=== PATIENT | female | born 1995 ===

== ENCOUNTER 2022-01-25 09:12 | Inpatient (IN) | payer BC ==
[2022-01-25] MEDS ORDERED: Lidocaine 1% 50 ML MDV INJECT PRN (09:39)
[2022-01-25] MEDS ORDERED: Ondansetron 4 MG/2 ML SDV IVPUSH PRN (09:39)
[2022-01-25] MEDS ORDERED: Misoprostol 200 MCG Tab PO PRN (09:39)
[2022-01-25] MEDS ORDERED: Tranexamic Acid 1,000 MG in Sodium Chloride 0.9% 100 ML IV PRN (09:39)
[2022-01-25] MEDS ORDERED: Butorphanol 1 MG/ML SDV IVPUSH PRN (09:39)
[2022-01-25] MEDS ORDERED: Water For Irrigation,Sterile 1,000 ML Container IRR PRN (09:39)
[2022-01-25] MEDS ORDERED: Sodium Chloride 0.9% 10 ML Syringe FLUSH PRN (09:39)
[2022-01-25] MEDS ORDERED: Carboprost Tromethamine 250 MCG/1 ML Amp IM PRN (09:39)
[2022-01-25] MEDS ORDERED: Methylergonovine 0.2 MG/1 ML Amp IM PRN (09:39)
[2022-01-25] MEDS ORDERED: Sodium Chloride 0.9% 2.5 ML Syringe FLUSH PRN (09:39)
[2022-01-25] MEDS ORDERED: Sodium Chloride 0.9% 20 ML SDV IV PRN (09:39)
[2022-01-25] MEDS ORDERED: Oxytocin/0.9 % Sodium Chloride 30 UNIT/500 ML BAG IV SCH (09:45)
[2022-01-25] MEDS ORDERED: fentaNYL 100 MCG/2 ML SDV ONE (10:26)
[2022-01-25] MEDS ORDERED: Ropivacaine 100 ML ONE (10:26)
[2022-01-25] MEDS ORDERED: ePHEDrine 50 MG/ML SDV IVPUSH PRN ×2 (10:41)
[2022-01-25] MEDS ORDERED: Ropivacaine 200 MG in Premix Bag 1 BAG EPIDUR SCH (10:45)
[2022-01-25] MEDS: Lactated Ringers 1,000 ML IV SCH ×3 (10:51→11:58)
[2022-01-25] MEDS ORDERED: Acetaminophen 500 MG Tab PO PRN (14:35)
[2022-01-25] MEDS ORDERED: Witch Hazel Medicated Pads 40/Jar TOP PRN (14:35)
[2022-01-25] MEDS ORDERED: Lanolin 100% Cream 7 GM Tube TOP PRN (14:35)
[2022-01-25] MEDS ORDERED: Benzocaine/Menthol 20%-0.5% Spray 78 GM Cannister TOP PRN (14:35)
[2022-01-25] MEDS ORDERED: Ibuprofen 400 MG Tab PO PRN (14:35)
[2022-01-25] MEDS ORDERED: Ibuprofen 800 MG Tab PO PRN (14:35)
[2022-01-25] MEDS ORDERED: Docusate Sodium 100 MG Cap PO PRN (14:35)
[2022-01-25] MEDS ORDERED: oxyCODONE 5 MG Tab PO PRN (14:35)
[2022-01-25] MEDS ORDERED: Bisacodyl 10 MG Supp RECTAL PRN (14:35)
[2022-01-25] MEDS: Acetaminophen 500 MG Tab PO PRN (19:38)
[2022-01-26] MEDS: Acetaminophen 500 MG Tab PO PRN ×2 (06:03→13:00)
== END 2022-01-26 17:25 | disposition home or self-care (01) | DRG 560 ==
LOC: MW.OBCHECK 09:12 → MW.OB 09:17 → MW.OBCHECK 09:38 → MW.OB 09:39 → OBSVTOIN 14:35 → MW.OB 19:59
PROVIDERS: ADMIT Obstetrics & Gynecology; ATTEND Obstetrics & Gynecology
PROC: 10E0XZZ Delivery of Products of Conception, External Approach (ICD-10-PCS; principal; 2022-01-25)
PROC: 10907ZC Drainage of Amniotic Fluid, Therapeutic from Products of Conception, Via Natural or Artificial Opening (ICD-10-PCS; 2022-01-25)
PROC: 0KQM0ZZ Repair Perineum Muscle, Open Approach (ICD-10-PCS; 2022-01-25)
PROC: 3E0R3BZ Introduction of Anesthetic Agent into Spinal Canal, Percutaneous Approach (ICD-10-PCS; 2022-01-25)
PROC: 00HU33Z Insertion of Infusion Device into Spinal Canal, Percutaneous Approach (ICD-10-PCS; 2022-01-25)
DX: O48.0 Post-term pregnancy (principal); Z37.0 Single live birth; Z3A.40 40 weeks gestation of pregnancy; O77.0 Labor and delivery complicated by meconium in amniotic fluid; O70.1 Second degree perineal laceration during delivery; Z20.822 Contact with and (suspected) exposure to COVID-19
CPT/HCPCS: 01967; 36415; 51702; 59025; 59409; 82803; 85014; 85018; 85027; 86592; 86850; 86900; 86901; A9270-GY; J2590; J2795; J3010; J7120; U0002